=== PATIENT | male | born 1970 | race Caucasian/White ===

== ENCOUNTER 2024-09-17 21:32 | Emergency (ER) | payer SELFPAY ==
[~2024-09-17] VITALS: Ht 177.8 cm; Wt 113.0 kg
[2024-09-17 21:35] VITALS: O2SAT 100
[2024-09-17] MEDS: SODIUM CHLORIDE 0.9% 1,000 ML IV ONE (23:41)
[2024-09-17 23:49] LABS: BASOPHILS % 0.9 % (0.0-2.0); EOSINOPHILS % 0.6 % (0.0-5.0); HEMATOCRIT. 48.7 % (42.0-52.0); HEMOGLOBIN. 16.1 g/dL (14.0-18.0); LYMPHOCYTES % 52.4 % (20.0-50.0); MEAN CORPUSCULAR HEMOGLOBIN 29.4 pg (28.0-32.0); MEAN CORPUSCULAR HGB CONC 33.1 g/dL (31.0-37.0); MEAN CORPUSCULAR VOLUME 88.9 fL (80.0-94.0); MEAN PLATELET VOLUME 8.3 fl (7.4-10.4); MONOCYTES % 7.8 % (2.0-8.0); NEUTROPHILS % 38.3 % (40.0-76.0); PLATELET 263 x1000/uL (130-400); RED BLOOD CELL COUNT 5.48 mill/uL (4.7-6.1); RED CELL DISTRIBUTION WIDTH 13.7 % (11.6-14.6); WHITE BLOOD COUNT 7.1 x1000/uL (4.5-11.0)
[2024-09-18 00:06] LABS: CARBON DIOXIDE 23 mEq/L (21-32); CHLORIDE 105 mEq/L (98-107); POTASSIUM 3.6 mEq/L (3.5-5.1); SODIUM 145 mEq/L (136-145)
[2024-09-18 00:07] LABS: CALCIUM 8.7 mg/dL (8.7-10.4)
[2024-09-18 00:12] LABS: CREATININE 0.8 mg/dL (0.6-1.3); GLUCOSE 279 mg/dL (70-105); UREA NITROGEN BLOOD 9 mg/dL (9-23)
[2024-09-18 00:14] LABS: ACETAMINOPHEN < 2 ug/mL (10-30)
[2024-09-18 00:21] LABS: ETHANOL BLOOD 351 mg/dL (<10)
[2024-09-18 01:10] VITALS: BP 145/89; PULSE 105; RESP 17; TEMP 36.6; O2SAT 95
== END 2024-09-18 01:30 | disposition home or self-care (01) ==
LOC: ER 21:32
DX: F10.129 Alcohol abuse with intoxication, unspecified (principal); E11.65 Type 2 diabetes mellitus with hyperglycemia; Z79.899 Other long term (current) drug therapy; Y90.8 Blood alcohol level of 240 mg/100 ml or more
CPT/HCPCS: 80048; 80307; 80329; 80320; 85025; 36415; 96360; 99283; J7030; Z7610 ×3; 99284; A4606; G0480